=== PATIENT | male | born 1980 | race Hispanic/Latino ===

== ENCOUNTER 2021-11-24 10:29 | Emergency (ER) | payer OTHER ==
[~2021-11-24] VITALS: Ht 172.7 cm; Wt 86.2 kg
[2021-11-24] MEDS ORDERED: METHOCARBAMOL 500 MG TAB PO ONE (10:45)
[2021-11-24] MEDS ORDERED: KETOROLAC TROMETHAMINE 60 MG/2 ML VIAL IM ONE (10:45)
[2021-11-24] MEDS ORDERED: NAPROSYN500 MG PO (12:38)
[2021-11-24] MEDS ORDERED: METHOCARBAMOL500 MG PO (12:38)
== END 2021-11-24 12:48 | disposition home or self-care (01) ==
LOC: EDBD 10:29 → ER 10:37
DX: M54.9 Dorsalgia, unspecified (principal); M62.830 Muscle spasm of back
CPT/HCPCS: 93005; 99283; J1885